=== PATIENT | male | born 1960 | race Caucasian/White ===

== ENCOUNTER 2022-07-25 21:35 | Emergency (ER) | payer OTHER, SELFPAY ==
[2022-07-25 21:55] VITALS: BP 162/91; PULSE 75; RESP 18; TEMP 36.6; O2SAT 98
--- NOTE | 2022-07-25 22:02 | PC.NURSE ---
Wall chart used Bilateral 20/40 Right eye 20/40 LEFT eye 20/50 No contact or glasses used.
--- NOTE | 2022-07-26 01:49 | ED.EYEPROB ---
HPI - Eye Problem General Chief complaint: Eye Problems Stated complaint: eye injury Time Seen by Provider: 07/26/22 01:33 History of Present Illness HPI Narrative: This is a 62-year-old male who denies significant past medical history, presenting the emergency department complaining of foreign body sensation in the left eye for the past 10 hours. He states he woke this afternoon and noticed scratching sensation in the left eye. He denies change or loss of vision. 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 Related Data Allergies Allergy/AdvReac Type Severity Reaction Status Date / Time No Known Allergies Allergy Verified 07/26/22 01:13 Review of Systems Review of Systems: CONSTITUTIONAL: Denies fever, chills, or sweats. EYES: Left eye irritation and redness denies visual changes or discharge. ENT: Denies rhinorrhea, congestion, sore throat, or otalgia. CARDIOVASCULAR: Denies chest pain, palpitations, or edema. RESPIRATORY: Denies cough or dyspnea. GASTROINTESTINAL: Denies abdominal pain, nausea, vomiting, or diarrhea. GENITOURINARY: Denies dysuria or hematuria. SKIN: Denies rash or itching. MUSCULOSKELETAL: Denies back pain, joint pain, or myalgia. NEUROLOGIC: Denies headache, numbness, dizziness, or weakness. PSYCHIATRIC: Denies anxiety or depression. [facility] Social History Social History (Updated 07/27/22 @ 03:47 by Carlos Robbins MD) Smoking status: Never smoker Alcohol intake: never Substance use: never Exam Narrative: GENERAL: Well-developed, well-nourished, appears uncomfortable HEAD: Normocephalic, atraumatic. EYES: Mild left scleral injection with mild erythema of the left upper lid. There appears to be a stye on the left upper lid. PERRLA and EOMI. ENT: Nares clear, no rhinorrhea or epistaxis. Mucous membranes moist. Oropharynx without tonsillar hypertrophy exudate or other lesions. CHEST: Clear to auscultation. No respiratory distress. No wheezes rales or rhonchi HEART: Regular rate and rhythm. No murmur heard. Normal peripheral pulses. ABDOMEN: Soft, nontender, nondistended, normal active bowel sounds. EXTREMITIES: Normal range of motion. No edema. SKIN: Warm, dry, no rash. NEURO: No focal deficits. Alert and oriented x3. PSYCH: Normal mood and affect. Course Course Emergency Course: 02:05 - Fluorescin staining of the left eye is not concerning for corneal ulcer or abrasion. I suspect the patient's pain is related to the stye. I advised refresh eyedrops and hot compresses. Discussed return and emergency precautions including signs/symptoms of periorbital and orbital cellulitis. The patient voiced understanding and is comfortable with the plan. All questions answered to his satisfaction. Vital Signs Vital signs: Vital Signs Temperature 97.9 F 07/25/22 21:55 Pulse Rate 75 07/25/22 21:55 Respiratory Rate 18 07/25/22 21:55 Blood Pressure 162/91 H 07/25/22 21:55 Pulse Oximetry 98 07/25/22 21:55 Oxygen Delivery Room Air 07/25/22 21:55 Temperature 97.9 F 07/25/22 21:55 Pulse Rate 72 07/26/22 02:15 Respiratory Rate 15 07/26/22 02:15 Blood Pressure 135/79 07/26/22 02:15 Pulse Oximetry 99 07/26/22 02:15 Oxygen Delivery Room Air 07/25/22 21:55 MDM - Eye Problem MDM Narrative Medical decision making narrative: Plan: Pain control, fluorescein staining, reassess Differential Diagnosis Differential diagnosis: Likely corneal abrasion, corneal ulcer and other (Retained foreign object, stye, other) Discharge Plan Discharge Clinical Impression: Hordeolum externum (stye), Acute left eye pain Patient Disposition: Home, Self-Care Condition: Stable Instructions: Antibiotic Silvestre Cortez (ED) Additional Instructions: You were seen in the emergency department. Your exam is not concerning for an abrasion or ulcer of the cornea. If you develop severe eye pain, the eye appears pus
[2022-07-26] MEDS: TETRACAINE HCL 0.5% OPHTH SOLN 4 ML BTL 1 DROP EACH EYE (02:02)
[2022-07-26] MEDS: FLUORESCEIN SOD 1 MG/STRIP EACH EYE (02:02)
[2022-07-26 02:15] VITALS: BP 135/79; PULSE 72; RESP 15; O2SAT 99
== END 2022-07-26 02:16 | disposition home or self-care (01) ==
PROVIDERS: Emergency Provider Preventive Medicine Aerospace Medicine; PCP Family Medicine
DX: H00.014 Hordeolum externum left upper eyelid (principal)
CPT/HCPCS: 99283

== ENCOUNTER 2024-04-02 08:19 | Outpatient (CLI) | payer OTHER, SELFPAY ==
--- NOTE | ~2024-04-02 | XR_ITS ---
EXAMINATION: XR chest 2V 04/02/2024 08:34 INDICATION: Acute cough PROCEDURE: COMPARISON: FINDINGS: There is a nodular density in the left lower thorax overlying the left fifth rib anteriorly . No focal pneumonia, edema or pneumothorax. The cardiomediastinal silhouette is within normal limits . There are no pleural effusions. There is no pneumothorax suspected. IMPRESSION: 1: Nodular density left lower thorax. Follow-up CT chest recommended to exclude parenchymal nodule. Reviewed, dictated and finalized at location [] [employer] IMPRESSION: 1: Nodular density left lower thorax. Follow-up CT chest recommended to exclud e parenchymal nodule.
== END 2024-04-02 08:20 | disposition home or self-care (01) ==
PROVIDERS: PCP Nurse Practitioner Family; Visit Provider Physician Assistant
DX: R91.8 Other nonspecific abnormal finding of lung field (principal); R05.1 Acute cough
CPT/HCPCS: 71046